=== PATIENT | female | born 1955 | race Caucasian/White ===

== ENCOUNTER → 2016-12-10 | Outpatient (CLI) | payer MEDICAID ==
--- NOTE | 2016-12-10 14:48 | RADIOLOGY REPORT (SQ) ---
EXAM DESCRIPTION: U/S ABDOMEN COMPLETE W/DOPPLER COMPLETED DATE/TIME: 12/10/2016 10:43 am REASON FOR STUDY: UNSPECIFIED JAUNDICE/THROMBOCYTOPENIA NOS D69.6 THROMBOCYTOPENIA, UNSPECIFIED R17 UNSPECIFIED JAUNDICE R11.0 NAUSEA COMPARISON: None. TECHNIQUE: Dynamic and static grayscale images acquired of the abdomen and recorded on PACS. Additio nal selected color Doppler and spectral images recorded. LIMITATIONS: Midline bowel gas FINDINGS: PANCREAS: Midline pancreas unremarkable LIVER: Diffuse increased echogenicity from diffuse hepatocellular disease. There is a nodular liver surface suggesting cirrhosis. LIVER VASCULATURE: Normal directional flow of the main portal vein and hepatic veins. GALLBLADDER: Surgically absent ULTRASOUND-DETECTED BAE'S SIGN: Surgically absent INTRAHEPATIC DUCTS AND COMMON DUCT: CBD and intrahepatic ducts normal caliber. No filling defects. C ommon bile duct 12 mm in diameter at the leilani hepatis, normal post cholecystectomy. Distal most com mon duct not well seen due to duodenum gas. INFERIOR VENA CAVA: Normal flow. AORTA: No aneurysm. RIGHT KIDNEY: Normal size. Normal echogenicity. No solid or suspicious masses. No hydronephros is. No calcifications. LEFT KIDNEY: Normal size. Normal echogenicity. No solid or suspicious masses. No hydronephrosi s. No calcifications. SPLEEN: Normal size. No solid masses. PERITONEAL AND PLEURAL SPACES: Trace left pleural effusion. No ascites OTHER: No other significant finding. IMPRESSION: Echogenic liver with nodular contour worrisome for cirrhosis. No splenomegaly No ascites. Trace left pleural effusion TECHNICAL DOCUMENTATION: JOB ID: [id number] [employer]- All Rights Reserved
== END ==
LOC: RAD 09:09
PROVIDERS: ATTEND Internal Medicine Gastroenterology
DX: D69.6 Thrombocytopenia, unspecified (principal); R17 Unspecified jaundice; R11.0 Nausea
CPT/HCPCS: 76700; 93976

== ENCOUNTER 2017-03-04 07:41 | Day surgery (SDC) | payer MEDICAID ==
[~2017-03-04 07:41] MED LIST: ALBUMIN HUMAN 200 ML IV PRN
[2017-03-04 08:17] LABS: HEMATOCRIT 31.5 % (36.0-47.0); HEMOGLOBIN 10.5 g/dL (12.0-15.5); MEAN CORPUSCULAR HEMOGLOBIN 30.3 pg (27.0-33.4); MEAN CORPUSCULAR HGB CONC 33.2 g/dL (32.0-36.0); MEAN CORPUSCULAR VOLUME 91 fl (80-97); RED BLOOD COUNT 3.46 10^6/uL (3.72-5.28); RED CELL DISTRIBUTION WIDTH 14.4 % (11.5-14.0); WHITE BLOOD COUNT 4.3 10^3/uL (4.0-10.5)
[2017-03-04 08:23] LABS: PROTHROMBIN TIME 16.9 SEC (11.4-15.4)
[2017-03-04 08:24] LABS: PARTIAL THROMBOPLASTIN TIME 34.5 SEC (23.5-35.8)
[2017-03-04 08:35] LABS: BLOOD UREA NITROGEN 8 mg/dL (7-20); CREATININE RESULT 0.96 mg/dL (0.52-1.25)
[2017-03-04 10:46] LABS: FLUID APPEARANCE HAZY; FLUID TYPE PLEURAL
[2017-03-04 10:47] LABS: STAIN REACTIVITY CHECK ACCEPTABLE
[2017-03-04 11:02] LABS: FLUID RBC AVERAGE 155.5; FLUID RBC DILUENT USED NONE USED; FLUID RBC DILUTION FACTOR 1; FLUID RBC SIDE 1 159; FLUID RBC SIDE 2 152; TOTAL RBC SQUARES COUNTED FLD 50
--- NOTE | 2017-03-04 11:34 | RADIOLOGY REPORT (SQ) ---
EXAM DESCRIPTION: U/S ABD PARACENTESIS COMPLETED DATE/TIME: 03/04/2017 10:48 am REASON FOR STUDY: ASCITES COMPARISON Abdominal ultrasound 12/10/2016 LIMITATIONS: None. PROCEDURE: After obtaining informed consent, the patient was brought to the ultrasound suite. The p rocedure was performed with the patient on a gurney. Ultrasound was used to identify a prominent poc ket of ascites in the left lower quadrant. An appropriate access site was selected. The patient was prepped and draped in usual sterile fashion. The access site was anesthetized with 7 mL 1% lidocai ne. A Gbtr-G-Cayqhzss needle was advanced into the fluid. After aspiration of fluid the needle, the catheter was advanced off the needle into the fluid. A total of 2000 mL of clear yellow fluid was r emoved. The patient tolerated the procedure well left the department in satisfactory condition. Specimens were sent for testing as per Dr. Leary IMPRESSION: Successful ultrasound-guided DIAGNOSTIC AND THERAPEUTIC paracentesis COMMENT: Patient medication list reviewed: Yes- Quality ID# [id number]:Eligible professional attests to doc umenting in the medical record they obtained, updated, or reviewed the patient's current medications. Quality ID #76: The patient was prepped and draped using maximum sterile barrier technique including cap, mask, sterile gown, sterile gloves, a large sterile sheet, hand hygiene, and 2% Chlorhexidine fo r cutaneous antisepsis. When ultrasound is used, sterile ultrasound techniques are followed requiring sterile gel and sterile probes. Quality ID #[id number]: Final reports for procedures using fluoroscopy that document radiation exposure dimas lee, or exposure time and number of fluorographic images (if radiation exposure indices are not avail able) TECHNICAL DOCUMENTATION: JOB ID: [id number] [employer]- All Rights Reserved
[2017-03-04] MEDS ORDERED: ALBUMIN HUMAN 25% RTU INJ 12.5 GM/50 ML RTUINJ IV ONE (12:00)
[2017-03-04 12:10] VITALS: BP 126/58
== END 2017-03-04 11:55 | disposition home or self-care (01) ==
LOC: RAD 07:41
PROVIDERS: ATTEND Internal Medicine Gastroenterology
PROC: 0W9G3ZZ Drainage of Peritoneal Cavity, Percutaneous Approach (ICD-10-PCS; principal; 2017-03-04)
DX: K74.3 Primary biliary cirrhosis (principal); R18.8 Other ascites; K74.69 Other cirrhosis of liver; K76.0 Fatty (change of) liver, not elsewhere classified; Z88.5 Allergy status to narcotic agent; F17.210 Nicotine dependence, cigarettes, uncomplicated; I25.10 Atherosclerotic heart disease of native coronary artery without angina pectoris; I10 Essential (primary) hypertension; K21.9 Gastro-esophageal reflux disease without esophagitis; Z79.899 Other long term (current) drug therapy; D64.9 Anemia, unspecified; J45.909 Unspecified asthma, uncomplicated; Z79.51 Long term (current) use of inhaled steroids; Z79.82 Long term (current) use of aspirin; Z79.02 Long term (current) use of antithrombotics/antiplatelets
CPT/HCPCS: 36415; 87205; 87070; 84520; 82565; 85027; 85610; 85730; 89050; 87075; 82042; 88162; 49083; P9047

== ENCOUNTER → 2017-03-21 | Outpatient (CLI) | payer MEDICAID ==
--- NOTE | 2017-03-24 09:26 | RADIOLOGY REPORT (SQ) ---
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 CONTRAST TYPE AND DOSE: 20 mL Prohance. RENAL FUNCTION: GFR > 60. LIMITATIONS: None. FINDINGS: LIVER: Normal size. Micronodular appearance, with nodular contour. No focal masses or en hancement. Normal portal vein enhancement and hepatic vein enhancement. SPLEEN: 14 cm in length, slightly larger than on ultrasound exam 12/10/2016. Normal splenic vein enha ncement PANCREAS: No masses. No adjacent inflammation or peripancreatic fluid collections. Pancreatic duct no t dilated. GALLBLADDER: Surgically absent. Normal caliber common bile duct without filling defects worrisome fo r choledocholithiasis ADRENAL GLANDS: No significant masses or asymmetry. RIGHT KIDNEY AND URETER: No masses. No hydronephrosis. LEFT KIDNEY AND URETER: No masses. No hydronephrosis. A less than 5 mm cyst left mid pole kidney. AORTA AND VESSELS: No aneurysm. No dissection. Renal arteries, SMA, celiac without stenosis. RETROPERITONEUM: No retroperitoneal adenopathy, hemorrhage or masses. BOWEL: Not well seen ABDOMINAL WALL AND PERITONEUM: Trace amount of right subphrenic free fluid BONES: No acute or significant findings. OTHER: No other significant finding. IMPRESSION: Micro nodular contour of the liver from cirrhosis. No focal masses or abnormal enhancem ent. Mild splenomegaly Trace right upper quadrant free fluid TECHNICAL DOCUMENTATION: JOB ID: [id number] [employer]- All Rights Reserved
== END ==
LOC: RAD 19:01
PROVIDERS: ATTEND Internal Medicine Gastroenterology
DX: K74.3 Primary biliary cirrhosis (principal); R18.8 Other ascites; K74.69 Other cirrhosis of liver
CPT/HCPCS: 74183; A9576